=== PATIENT | female | born 1970 | race Caucasian/White ===

== ENCOUNTER → 2016-07-23 | Outpatient (CLI) | payer MEDICAID | LOC: CIMAGING 08:14 | PROVIDERS: ATTEND Internal Medicine | DX: R74.8 Abnormal levels of other serum enzymes (principal); D30.01 Benign neoplasm of right kidney | CPT/HCPCS: 76700-PO ==

== ENCOUNTER 2017-03-24 07:43 | Emergency (ER) | payer MEDICAID ==
[2017-03-24 07:53] VITALS: RESP 18; TEMP 98; O2SAT 97
--- NOTE | 2017-03-24 08:00 | EDPHY ---
H & P Stated Complaint: c/o UTI s/s x 2 days Time Seen by Provider: 03/24/17 07:56 HPI/ROS: CHIEF COMPLAINT: Dysuria HISTORY OF PRESENT ILLNESS: Patient is a 38-year-old female who comes to the emergency department complaining of dysuria for the last 2 days. No fevers. No flank pain. No nausea vomiting. No rash. She denies risk of . No discharge. REVIEW OF SYSTEMS: Constitutional: denies: chills, fever, recent illness, recent injury EENTM: denies: blurred vision, double vision, nose congestion Respiratory: denies: cough, shortness of breath Cardiac: denies: chest pain, irregular heart rate, lightheadedness, palpitations Gastrointestinal/Abdominal: denies: abdominal pain, diarrhea, nausea, vomiting, blood streaked stools Genitourinary: See HPI Musculoskeletal: denies: joint pain, muscle pain Skin: denies: lesions, rash, jaundice, bruising Neurological: denies: headache, numbness, paresthesia, tingling, dizziness, weakness Hematologic/Lymphatic: denies: blood clots, easy bleeding, easy bruising Immunologic/allergic: denies: HIV/AIDS, transplant EXAM: GENERAL: Well-appearing, well-nourished and in no acute distress. HEAD: Atraumatic, normocephalic. EYES: Pupils equal round and reactive to light, extraocular movements intact, sclera anicteric, conjunctiva are normal. ENT: TMs normal, nares patent, oropharynx clear without exudates. Moist mucous membranes. NECK: Normal range of motion, supple without lymphadenopathy or JVD. LUNGS: Breath sounds clear to auscultation bilaterally and equal. No wheezes rales or rhonchi. HEART: Regular rate and rhythm without murmurs, rubs or gallops. ABDOMEN: Soft, nontender, normoactive bowel sounds. No guarding, no rebound. No masses appreciated. BACK: No CVA tenderness, no spinal tenderness, step-offs or deformities EXTREMITIES: Normal range of motion, no pitting or edema. No clubbing or cyanosis. NEUROLOGICAL: Cranial nerves II through XII grossly intact. Normal speech, normal gait. 5/5 strength, normal movement in all extremities, normal sensation PSYCH: Normal mood, normal affect. SKIN: Warm, dry, normal turgor, no visible rashes or lesions. Source: Patient Exam Limitations: No limitations - Personal History LMP (Females 10-55): 22-28 Days Ago Current Tetanus Diphtheria and Acellular Pertussis (TDAP): Yes - Medical/Surgical History Hx Asthma: No Hx Chronic Respiratory Disease: No Hx Diabetes: No Hx Cardiac Disease: No Hx Renal Disease: No Hx Cirrhosis: No Hx Alcoholism: No Hx HIV/AIDS: No Hx Splenectomy or Spleen Trauma: No Other PMH: hypothyroid,chronic pain, Closed Head injury, , breast augmentation - Family History Significant Family History: No pertinent family hx - Social History Smoking Status: Never smoked Alcohol Use: Sober Drug Use: None Constitutional: Initial Vital Signs Temperature (C) 36.6 C 03/24/17 07:51 Heart Rate 95 03/24/17 07:51 Respiratory Rate 18 03/24/17 07:51 Blood Pressure 119/79 03/24/17 07:51 O2 Sat (%) 97 03/24/17 07:51 O2 Delivery Mode Room Air Allergies/Adverse Reactions: antibiotic Allergy (Uncoded 10/11/14 21:19) keflex Allergy (Uncoded 03/24/17 07:51) allergies that she cannot remember Adverse Reaction (Unknown, Uncoded 12/29/15 12:24) Home Medications: Medication Instructions Recorded Oxycodone HCl/Acetaminophen 1 ea PO Q4H PRN #15 tablet 02/14/11 [Oxycodone-Acetaminophen 5-325] Adderall 10 MG (*) 03/24/17 Nitrofurantoin Monohyd/M-Cryst 100 mg PO BID #20 cap 03/24/17 [Nitrofurantoin Alger-Macrocrystal] Ondansetron Odt [Zofran Odt 4 mg 4 mg PO Q4 PRN #20 tab 03/24/17 (RX)] Phenazopyridine HCl [Pyridium] 200 mg PO TID #6 tab 03/24/17 Medical Decision Making ED Course/Re-evaluation: 8:30 a.m. we discussed the lab results. I will start the patient on Macrobid. She is allergic to Keflex. She is also requesting a prescription for Zofran and and we discussed treatment with [id number] Pyridium. She is happy with this plan and declines further workup or testing at this time. We discussed indications for returning. Differential Diagnosis: Partial list of the Differential diagnosis considered include but were not limited to; urinary tract infection, yeast infection, pyelonephritis and although unlikely based on the history and physical exam, I also considered STD , , ovarian cyst, sepsis. I discussed these differential diagnoses and the plan with the patient as well as the usual and expected course. The patient understands that the diagnosis is provisional and that in medicine we are not always correct and that further workup is often warranted. Usual and customary warnings were given. All of the patient's questions were answered. The patient was instructed to return to the emergency department should the symptoms at all worsen or return, otherwise to followup with the physician as we discussed. - Data Points Laboratory Results: 03/24/17 03/24/17 08:00 08:00 Urine Color LT. YELLOW Urine Appearance HAZY Urine pH 5.5 (5.0-7.5) Ur Specific [place] >= 1.030 (1.002-1.030) Urine Protein 1+ H (NEGATIVE) Urine Ketones TRACE H (NEGATIVE) Urine Blood TRACE H (NEGATIVE) Urine Nitrate NEGATIVE (NEGATIVE) Urine Bilirubin NEGATIVE (NEGATIVE) Urine Urobilinogen 0.2 EU EU (0.2-1.0) Ur Leukocyte Esterase 1+ H (NEGATIVE) Urine RBC 3-5 /hpf H /hpf (0-3) Urine WBC 25-50 /hpf H /hpf (0-3) Ur Epithelial Cells 1+ /lpf /lpf (NONE-1+) Urine Bacteria 2+ /hpf H /hpf (NONE SEEN) Urine Mucus 2+ /lpf H /lpf (NONE-1+) Urine Glucose NEGATIVE (NEGATIVE) Urine Test NEGATIVE Medications Given: Discontinued Medications Nitrofurantoin Macrocrystals (Macrobid) 100 mg PO EDNOW ONE PRN Reason: Protocol Stop: 03/24/17 08:37 Last Admin: 03/24/17 08:44 Dose: 100 mg Phenazopyridine HCl (Pyridium) 200 mg PO EDNOW ONE Stop: 03/24/17 08:37 Last Admin: 03/24/17 08:45 Dose: 200 mg Departure - Departure Disposition: Home, Routine, Self-Care Clinical Impression: Urinary tract infection Qualifiers: Urinary tract infection type: acute cystitis Hematuria presence: without hematuria Qualified Code(s): N30.00 - Acute cystitis without hematuria Condition: Fair Instructions: Urinary Tract Infection in Women (ED) Referrals: Barrett Crabtree MD [Primary Care Provider] - As per Instructions Prescriptions: Nitrofurantoin Monohyd/M-Cryst [Nitrofurantoin Alger-Macrocrystal] 100 mg PO BID #20 cap Ondansetron Odt [Zofran Odt 4 mg (RX)] 4 mg PO Q4 PRN #20 tab PRN Reason: Nausea & Vomiting Phenazopyridine HCl [Pyridium] 200 mg PO TID #6 tab
[2017-03-24 08:11] LABS: LEUKOCYTE ESTERASE,URINE 1+ (NEGATIVE); NITRITE,URINE NEGATIVE (NEGATIVE); PH,URINE 5.5 (5.0-7.5)
[2017-03-24 08:12] LABS: COLOR LT. YELLOW
[2017-03-24 08:21] LABS: BACTERIA 2+ /hpf (NONE SEEN); MUCUS 2+ /lpf (NONE-1+); WBC,URINE 25-50 /hpf (0-3)
[2017-03-24] MEDS ORDERED: PHENAZOPYRIDINE HCL 200 MG TAB PO ONE (08:36)
[2017-03-24] MEDS ORDERED: NITROFURANTOIN MACROBID 100 MG CAP PO ONE (08:36)
[2017-03-24 08:51] VITALS: BP 132/62; PULSE 78
== END 2017-03-24 08:49 | disposition home or self-care (01) ==
LOC: CED 07:43
DX: N30.00 Acute cystitis without hematuria (principal); B96.89 Other specified bacterial agents as the cause of diseases classified elsewhere
CPT/HCPCS: 81003-PO; 81015-PO; 81025-PO

== ENCOUNTER → 2018-04-16 | Outpatient (CLI) | payer MEDICAID | LOC: CIMAGING 15:18 | PROVIDERS: ATTEND Internal Medicine | DX: D25.1 Intramural leiomyoma of uterus (principal); D25.2 Subserosal leiomyoma of uterus; N83.201 Unspecified ovarian cyst, right side; N88.8 Other specified noninflammatory disorders of cervix uteri | CPT/HCPCS: 76856-PO ==

== ENCOUNTER → 2018-06-18 | Outpatient (CLI) | payer MEDICAID | LOC: CIMAGING 12:50 | PROVIDERS: ATTEND Obstetrics & Gynecology | DX: Z12.31 Encounter for screening mammogram for malignant neoplasm of breast (principal); N64.59 Other signs and symptoms in breast | CPT/HCPCS: 76641-PO ==

== ENCOUNTER 2018-08-19 12:43 | Inpatient (IN) | payer MEDICAID, OTHER ==
--- NOTE | 2018-08-19 13:01 | EDPHY ---
H & P Time Seen by Provider: 08/19/18 13:00 HPI/ROS: CHIEF COMPLAINT: Back pain after plastic surgery HISTORY OF PRESENT ILLNESS: The patient recently had breast augmentation presents to the ED with complaints of right posterior back pain. The patient has been dealing with difficult to manage pain since her surgery. She reports to me she was hospitalized at [facility] postoperatively. She saw her plastic surgeon today who referred her to the emergency department. The patient was initially told that it was a possibility that she was experiencing a kidney stone however the patient reports the me that the pain is definitely in the right paraspinal muscles in the upper cervical spine. She denies any fever or vomiting. The patient did have her dressings taken down by the plastic surgeon today who reportedly stated surgical incisions looked fine. REVIEW OF SYSTEMS: A comprehensive 10 point review of systems is otherwise negative aside from elements mentioned in the history of present illness Source: Patient Exam Limitations: No limitations - Medical/Surgical History Hx Asthma: No Hx Chronic Respiratory Disease: No Hx Diabetes: No Hx Cardiac Disease: No Hx Renal Disease: No Hx Cirrhosis: No Hx Alcoholism: No Hx HIV/AIDS: No Hx Splenectomy or Spleen Trauma: No Other PMH: hypothyroid,chronic pain, Closed Head injury, , breast augmentation - Social History Smoking Status: Never smoked - Physical Exam Exam: General Appearance: Alert, appears somewhat sedated, no acute distress Eyes: Pupils equal and round no pallor or injection ENT, Mouth: Mucous membranes moist Respiratory: There are no retractions, lungs are clear to auscultation, multiple drains in place on chest wall, soft tissue binder also in place. Cardiovascular: Regular rate and rhythm Gastrointestinal: Abdomen is soft and nontender, no masses, bowel sounds normal Neurological: A&O, normal motor function, normal sensory exam, normal cranial nerves Skin: Warm and dry, no rashes Musculoskeletal: Tenderness to palpation in the right posterior mid parathoracic musculature Extremities: symmetrical, full range of motion Constitutional: Initial Vital Signs Temperature (C) 37 C 08/19/18 12:58 Heart Rate 81 08/19/18 12:58 Respiratory Rate 20 08/19/18 12:58 Blood Pressure 119/86 H 08/19/18 12:58 O2 Sat (%) 95 08/19/18 12:58 O2 Delivery Mode Nasal Cannula O2 (L/minute) 2 Allergies/Adverse Reactions: antibiotic Allergy (Uncoded 10/11/14 21:19) keflex Allergy (Uncoded 03/24/17 07:51) allergies that she cannot remember Adverse Reaction (Unknown, Uncoded 12/29/15 12:24) Home Medications: Medication Instructions Recorded Oxycodone HCl/Acetaminophen 1 ea PO Q4H PRN #15 tablet 02/14/11 [Oxycodone-Acetaminophen 5-325] Adderall 10 MG (*) 03/24/17 Nitrofurantoin Monohyd/M-Cryst 100 mg PO BID #20 cap 03/24/17 [Nitrofurantoin Emanuel-Macrocrystal] Ondansetron Odt [Zofran Odt 4 mg 4 mg PO Q4 PRN #20 tab 03/24/17 (RX)] Phenazopyridine HCl [Pyridium] 200 mg PO TID #6 tab 03/24/17 Medical Decision Making ED Course/Re-evaluation: Patient is referred to the emergency department by her plastic surgeon for evaluation of uncontrolled postoperative pain that is out of proportion to any physical exam findings. The patient had been hospitalized overnight at the [facility] Emergency Department postoperatively. She has had severe pain in her back. She was referred here for evaluation. The patient was requesting IV Dilaudid upon arrival. She has been on oral oxycodone as an outpatient. The patient was taken for CT pulmonary angiogram if she was noted to be hypoxic and have back pain. That study demonstrated no evidence of a PE. CT scan of the abdomen pelvis does demonstrate trace pneumoperitoneum which Dr. Oscar tells me is unexpected finding following her plastic surgery. Patient received multiple doses of IV Dilaudid in the emergency department. The etiology of her pain is uncertain. The patient does not have a known history of narcotic dependence. I discussed the case with Dr. Oscar who was requested the patient be admitted to the hospitalist service. The patient is still in a hospital tomorrow he will see the patient while in house. Consultation was made with Dr. De Santiago from the hospitalist service who will admit the patient. Differential Diagnosis: Differential diagnosis considered includes pulmonary embolism, pneumonia, pneumothorax, kidney stone, peritonitis, narcotic dependence - Data Points Laboratory Results: Laboratory Results 08/19/18 13:00 08/19/18 13:00 08/19/18 08/19/18 13:00 13:00 WBC 15.48 10^3/uL H 10^3/uL (3.80-9.50) RBC 4.15 10^6/uL L 10^6/uL (4.18-5.33) Hgb 13.3 g/dL g/dL (12.6-16.3) Hct 38.5 % % (38.0-47.0) MCV 92.8 fL fL (81.5-99.8) MCH 32.0 pg pg (27.9-34.1) MCHC 34.5 g/dL g/dL (32.4-36.7) RDW 12.3 % % (11.5-15.2) Plt Count 260 10^3/uL 10^3/uL (150-400) MPV 9.6 fL fL (8.7-11.7) Neut % (Auto) 70.7 % % (39.3-74.2) Lymph % (Auto) 19.3 % % (15.0-45.0) Emanuel % (Auto) 8.9 % % (4.5-13.0) Eos % (Auto) 0.1 % L % (0.6-7.6) Baso % (Auto) 0.5 % % (0.3-1.7) Nucleat RBC Rel Count 0.0 % % (0.0-0.2) Absolute Neuts (auto) 10.95 10^3/uL H 10^3/uL (1.70-6.50) Absolute Lymphs (auto) 2.99 10^3/uL 10^3/uL (1.00-3.00) Absolute Monos (auto) 1.37 10^3/uL H 10^3/uL (0.30-0.80) Absolute Eos (auto) 0.02 10^3/uL L 10^3/uL (0.03-0.40) Absolute Basos (auto) 0.07 10^3/uL 10^3/uL (0.02-0.10) Absolute Nucleated RBC 0.00 10^3/uL 10^3/uL (0-0.01) Immature Gran % 0.5 % % (0.0-1.1) Immature Gran # 0.08 10^3/uL 10^3/uL (0.00-0.10) Sodium 135 mEq/L mEq/L (135-145) Potassium 3.3 mEq/L L mEq/L (3.5-5.2) Chloride 100 mEq/L mEq/L (97-110) Carbon Dioxide 23 mEq/l mEq/l (22-31) Anion Gap 12 mEq/L mEq/L (6-14) BUN 9 mg/dL mg/dL (7-23) Creatinine 0.7 mg/dL mg/dL (0.6-1.0) Estimated GFR > 60 Glucose 107 mg/dL H mg/dL (70-100) Calcium 9.5 mg/dL mg/dL (8.5-10.4) Medications Given: Discontinued Medications Hydromorphone HCl (Dilaudid) 1 mg IVP EDNOW ONE Stop: 08/19/18 13:09 Last Admin: 08/19/18 13:13 Dose: 1 mg Hydromorphone HCl (Dilaudid) 1 mg IVP EDNOW ONE Stop: 08/19/18 14:43 Last Admin: 08/19/18 14:41 Dose: 1 mg Sodium Chloride (Ns) 1,000 mls @ 0 mls/hr IV EDNOW ONE; Wide Open PRN Reason: Protocol Stop: 08/19/18 13:09 Last Admin: 08/19/18 13:15 Dose: 1,000 mls Departure - Departure Disposition: [facility] Inpatient Acute Clinical Impression: Postoperative pain Condition: Good Referrals: FRANKIE FRENCH [Primary Care Provider] - As per Instructions
[2018-08-19] MEDS ORDERED: NS 1,000 ML IV ONE (13:08)
[2018-08-19] MEDS ORDERED: HYDROmorphONE/DILAUDID 2 MG/ML INJ IVP ONE ×2 (13:08→14:42)
[2018-08-19 13:24] LABS: PLATELET COUNT 260 10^3/uL (150-400)
[2018-08-19] MEDS ORDERED: IOPAMIDOL (ISOVUE 370) 100 ML BTL IV ONE (13:59)
[2018-08-19] MEDS ORDERED: HYDROmorphONE/DILAUDID 1 MG/ML INJ ONE (14:41)
[2018-08-19] MEDS ORDERED: ACETAMINOPHEN 325 MG TAB PO PRN (15:57)
[2018-08-19] MEDS ORDERED: ONDANSETRON DISINTEGRATING 4 MG TAB PO PRN (15:57)
[2018-08-19] MEDS ORDERED: PROTOCOL POTASSIUM 1 DOSE MISC PRN (16:01)
[2018-08-19] MEDS ORDERED: LACTULOSE 20 GM/30 ML UDCUP PO PRN (16:02)
[2018-08-19] MEDS ORDERED: MAGNESIUM HYDROXIDE 30 ML UDCUP PO PRN (16:02)
[2018-08-19] MEDS ORDERED: BISACODYL 10 MG SUPP PR PRN (16:02)
[2018-08-19] MEDS ORDERED: POTASSIUM CL 20 MEQ PKT PO ONE (16:03)
--- NOTE | 2018-08-19 16:12 | PDGENHP ---
History and Physical - Chief Complaint Intractable post-operative pain - History of Present Illness 48 y/o female presenting to the emergency room s/p multiple cosmetic procedures that took place on Friday at [facility] by Dr. Oscar (face lift, neck lift, breast reduction and lift, and tummy tuck) w/intractable surgical pain. She was admitted overnight on Friday at [facility]'s ED d/t pain and was discharged yesterday able to tolerate PO narcotics. She presented to Dr. Oscar's office today c/o of continued pain mostly to her right posterior back which per Dr. Oscar is unusual for her type of procedures that were performed and was sent here to the ED for further evaluation. Before coming here, he removed bandages to evaluate surgical incision and was deemed C/D/I. Chest CTA and abdominal CT reveal no PE and trace pneumoperitoneum, finding no etiology that is causing the pain. She reports she has pain at every incisional site, nauseous, has vomited, and would like to have a BM since her last BM was Friday. Denies CP, palpitations, SOB, dysuria. She is being admitted for treatment and monitoring. History Information - Allergies/Home Medication List Allergies/Adverse Reactions: cephalexin [From Keflex] Allergy (Verified 08/19/18 16:17) Home Medications: ALPRAZolam [Xanax 0.25 MG (*)] 0.25 mg PO DAILY PRN 08/19/18 [Last Taken Unknown ] Clindamycin HCl [Clindamycin] 300 mg PO AD 08/19/18 [Last Taken 08/19/18] Ibuprofen [Motrin (*)] 600 mg PO Q6-8PRN PRN 08/19/18 [Last Taken Unknown] oxyCODONE IR [Oxycodone Ir (*)] 2.5 - 5 mg PO Q4-6PRN PRN 08/19/18 [Last Taken 08/19/18] traZODone [traZODONE 50MG (*)] 25 mg PO HS 08/19/18 [Last Taken 08/18/18] I have personally reviewed and updated: family history, medical history, social history, surgical history Past Medical History: Hypothyroidism, Chronic pain, fibromyalgia?, PTSD, depression, migraines - Surgical History Additional surgical history: , breast reduction w/lift, face lift, neck lift, tummy tuck - Family History Positive for: non-pertinent - Social History Smoking Status: Never smoked Alcohol Use: Rarely Drug Use: None Additional social history: Single. Lives in [place]. Son at age 30 y/o last year in [place] d/t motorcycle accident Review of Systems Review of Systems: ROS: 10pt was reviewed & negative except for what was stated in HPI & below Physical Exam Physical Exam: Lab data and imaging were reviewed. Case discussed w/admitting physician, Dr. Jesenia De Santiago WBC: 15.48 H/H: 13.3/38.5 Plt count: 260 Na: 135 K: 3.3 Cl: 100 Co2: 23 BUN/Cr: 9/0.[address]/Chest CTA: see HPI Temp Pulse Resp BP Pulse Ox 36.4 C 107 H 18 146/103 H 96 08/19/18 14:35 08/19/18 14:35 08/19/18 14:35 08/19/18 14:35 08/19/18 14:35 Constitutional: no apparent distress, uncomfortable Eyes: PERRL, anicteric sclera, EOMI Ears, Nose, Mouth, Throat: moist mucous membranes, hearing normal, ears appear normal, no oral mucosal ulcers Cardiovascular: regular rate and rhythym, no murmur, rub, or gallop, No edema Peripheral Pulses: 2+: dorsalis-pedis (R), dorsalis-pedis (L) Respiratory: no respiratory distress, no rales or rhonchi, clear to auscultation Gastrointestinal: other (Hypoactive BS, tender d/t surgical incision) Genitourinary: no bladder fullness, no bladder tenderness Skin: warm, normal color, no rashes or abrasions, no fluctuance, no induration, other (Surgical incisions noted appear to be C/D/I, noted 2 drains to chest wall ), No mottled Musculoskeletal: full muscle strength, no muscle tenderness, normal joint ROM, no joint effusions Neurologic: AAOx3, sensation intact bilaterally, CN II-XII Intact Psychiatric: interacting appropriately, not anxious, not encephalopathic, thought process linear Lymph, Heme, Immunologic: no cervical LAD, no supraclavicular LAD Lab Data & Imaging Review 08/19/18 13:00 08/19/18 13:00 WBC 15.48 10^3/uL (3.80-9.50) H 08/19/18 13:00 RBC 4.15 10^6/uL (4.18-5.33) L 08/19/18 13:00 Hgb 13.3 g/dL (12.6-16.3) 08/19/18 13:00 Hct 38.5 % (38.0-47.0) 08/19/18 13:00 MCV 92.8 fL (81.5-99.8) 08/19/18 13:00 MCH 32.0 pg (27.9-34.1) 08/19/18 13:00 MCHC 34.5 g/dL (32.4-36.7) 08/19/18 13:00 RDW 12.3 % (11.5-15.2) 08/19/18 13:00 Plt Count 260 10^3/uL (150-400) 08/19/18 13:00 MPV 9.6 fL (8.7-11.7) 08/19/18 13:00 Neut % (Auto) 70.7 % (39.3-74.2) 08/19/18 13:00 Lymph % (Auto) 19.3 % (15.0-45.0) 08/19/18 13:00 Traill % (Auto) 8.9 % (4.5-13.0) 08/19/18 13:00 Eos % (Auto) 0.1 % (0.6-7.6) L 08/19/18 13:00 Baso % (Auto) 0.5 % (0.3-1.7) 08/19/18 13:00 Nucleat RBC Rel Count 0.0 % (0.0-0.2) 08/19/18 13:00 Absolute Neuts (auto) 10.95 10^3/uL (1.70-6.50) H 08/19/18 13:00 Absolute Lymphs (auto) 2.99 10^3/uL (1.00-3.00) 08/19/18 13:00 Absolute Monos (auto) 1.37 10^3/uL (0.30-0.80) H 08/19/18 13:00 Absolute Eos (auto) 0.02 10^3/uL (0.03-0.40) L 08/19/18 13:00 Absolute Basos (auto) 0.07 10^3/uL (0.02-0.10) 08/19/18 13:00 Absolute Nucleated RBC 0.00 10^3/uL (0-0.01) 08/19/18 13:00 Immature Gran % 0.5 % (0.0-1.1) 08/19/18 13:00 Immature Gran # 0.08 10^3/uL (0.00-0.10) 08/19/18 13:00 Sodium 135 mEq/L (135-145) 08/19/18 13:00 Potassium 3.3 mEq/L (3.5-5.2) L 08/19/18 13:00 Chloride 100 mEq/L (97-110) 08/19/18 13:00 Carbon Dioxide 23 mEq/l (22-31) 08/19/18 13:00 Anion Gap 12 mEq/L (6-14) 08/19/18 13:00 BUN 9 mg/dL (7-23) 08/19/18 13:00 Creatinine 0.7 mg/dL (0.6-1.0) 08/19/18 13:00 Estimated GFR > 60 08/19/18 13:00 Glucose 107 mg/dL (70-100) H 08/19/18 13:00 Calcium 9.5 mg/dL (8.5-10.4) 08/19/18 13:00 Magnesium 1.7 mg/dL (1.6-2.3) 08/19/18 13:00 Total Bilirubin 0.5 mg/dL (0.1-1.4) 08/19/18 13:00 Conjugated Bilirubin 0.2 mg/dL (0.0-0.5) 08/19/18 13:00 Unconjugated Bilirubin 0.3 mg/dL (0.0-1.1) 08/19/18 13:00 AST 30 IU/L (14-46) 08/19/18 13:00 ALT 32 IU/L (9-52) 08/19/18 13:00 Alkaline Phosphatase 66 IU/L (38-126) 08/19/18 13:00 Total Protein 6.3 g/dL (6.3-8.2) 08/19/18 13:00 Albumin 3.7 g/dL (3.5-5.0) 08/19/18 13:00 Assessment & Plan Plan: 48 y/o female s/p POD #3 after undergoing face and neck lift, tummy tuck, and breast reduction w/lift w/Dr. Oscar at [facility] presents w/intractable post-operative pain. She was admitted to [facility] ER after surgery because of pain and d/c'ed yesterday. She was given Percocet to assist w/pain management. While she was sleeping in the ED, her oxygen saturation dipped into the 80s - chest CTA revealed no PE or pulmonary processes. Abdominal CT reveal trace pneumoperitoneum w/no perforation or abscesses. Her vitals signs are the followin/103 BP, 107 HR, 18 Resp, 36.4c, 96% 2L NC. #Post-operative pain management -She received 2 mg IVP Dilaudid in the ED; will not supply any further IVP narcotics -She may cont her Oxy IR PO and receive Toradol IVP PRN -PT/OT to evaluate and treat -Bowel regimen -Anti-emetics PRN -Cont clindamycin #Leukocytosis: 15.48, she is afebrile and considering her recent surgery, I suspect this is stress reactive and not infectious. Cont to monitor. If febrile, check white count in AM. #Hypokalemia: 3.3, Magnesium 1.7. Initiated K protocol and will receive 40 meq K PO tonight #Depression: She reports being "in a good place right now." Cont home xanax and trazadone. Diet: Regular Code: Full VTE ppx: SCDs Dispo: Admit to obs
[2018-08-19] MEDS: ALPRAZolam 0.25 MG TAB PO PRN (16:23)
[2018-08-19] MEDS: KETOROLAC 30 MG/1 ML SDV IVP PRN ×2 (16:24→22:53)
[2018-08-19] MEDS: ONDANSETRON 4 MG/2 ML VIAL IVP PRN ×2 (16:24→20:36)
[2018-08-19] MEDS ORDERED: POTASSIUM CL 10 MEQ TAB PO ONE (16:39)
[2018-08-19] MEDS: CLINDAMYCIN 150 MG CAP PO SCH ×2 (17:16→20:40)
--- NOTE | 2018-08-19 18:18 | GHP ---
[f rep st] HISTORY AND PHYSICAL DATE OF ADMISSION: 08/19/2018 CHIEF COMPLAINT: Intractable full body postoperative pain. HISTORY OF PRESENT ILLNESS: A 48 year-old female presenting in the ER, status post multiple cosmetic procedures on 08/17/[address] Oscar, including face/ neck lift, breast reduction and lift, tummy tuck, with intractable pain. Seen [place] that evening with pain and discharged home with oxycodone. Has been taking 5 to 10 mg every 4 hours. Her incisions were evaluated by Dr. Oscar today. Most concerned about her right flank, which is unusual for any of the procedures he performs. Chest CTA and abdominal CT are negative for pulmonary embolism. Show trace pneumoperitoneum, but no source causing the pain. She says the pain is at every incisional site. She is nauseated and has not had a BM since Friday. She cannot further describe the pain, whether it is sharp or dull. She does tell me it gets as bad as 5 at home and 3 with Dilaudid here in the ER. I examined and evaluated the patient with Iona Lara NP. I reviewed her note, agree it except as stated in mine. PHYSICAL EXAMINATION: VITAL SIGNS: Temperature 36.4, blood pressure 111/73, heart rate was 107 initially and 69 now, 100% on 4 L, 95% on room air. GENERAL : Appears younger than stated age. HEENT: Incision behind bilateral ears, scalp stapled, clean, dry, intact. No surrounding erythema. Has a surgical binder across her chest. MICHAEL drains with sanguinous drainage. Abdominal incision is stable, clean, dry, intact. No evidence of infection. ASSESSMENT/PLAN: Pain: Has a history of fibromyalgia, which may be contributing. There are no objective findings on imaging to explain her pain. Provide home oxycodone along with Toradol with a PPI. I expressed to her my concern of starting narcotics for unidentified source. Provided bowel regimen, incentive spirometry. Dr. Oscar to evaluate tomorrow. DISPOSITION: Observation admission given intractable pain warranting IV Toradol. /[id number]/MODL MTDD
[2018-08-19] MEDS: PANTOPRAZOLE SODIUM 40 MG VIAL IVP SCH (18:32)
[2018-08-19] MEDS: SENNOSIDES 1 TAB PO PRN ×2 (19:08→20:45)
[2018-08-19] MEDS: oxyCODONE IR 5 MG TAB PO PRN ×2 (19:30→23:38)
[2018-08-19] MEDS: traZODone 50 MG TAB PO SCH (20:40)
[2018-08-19] MEDS: SENNOSIDES/DOCUSATE SODIUM TAB PO SCH (20:55)
[2018-08-20] MEDS: oxyCODONE IR 5 MG TAB PO PRN ×2 (04:40→08:56)
[2018-08-20] MEDS: KETOROLAC 30 MG/1 ML SDV IVP PRN ×2 (05:00→10:38)
--- NOTE | 2018-08-20 08:37 | SOAPPROG ---
SOAP Progress Note Assessment/Plan: Assessment: Improved pain control s/p cosmetic surgery Normal post surgical healing Plan: Home today on oral pain meds Follow up BPS tomorrow for dressing changes 08/20/18 08:35 Subjective: Feeling comfortable this am Objective: Vital Signs Temp Pulse Resp BP Pulse Ox 36.3 C 78 16 107/62 99 08/20/18 04:00 08/20/18 04:00 08/20/18 04:00 08/20/18 04:00 08/20/18 04:00 Laboratory Results 08/20/18 04:36 08/19/18 08/20/18 08/21/18 05:59 05:59 05:59 Intake Total 1250 Output Total 110 Balance 1140 dressings clean and intact ICD10 Worksheet Patient Problems: Problems Problem Status Onset Postoperative pain Acute
[2018-08-20] MEDS: PANTOPRAZOLE SODIUM 40 MG VIAL IVP SCH (08:57)
[2018-08-20] MEDS: SENNOSIDES/DOCUSATE SODIUM TAB PO SCH ×2 (08:57→22:07)
[2018-08-20] MEDS ORDERED: HYDROmorphONE/DILAUDID 2 MG TAB PO PRN (11:20)
[2018-08-20] MEDS: POLYETHYLENE GLYCOL 3350 17 GM PKT PO PRN (12:15)
[2018-08-20] MEDS: KETOROLAC 15 MG/1 ML SDV IVP PRN ×2 (14:43→21:07)
--- NOTE | 2018-08-20 15:42 | ASMTCMCOM ---
CM Note CM Note Notes: Patient admitted with post-operative pain after having multiple cosmetic procedures w Dr Oscar at [facility] Thursday 08/17. She is normally independent, works as an [employer] consultant. Lives alone. PT/OT have cleared her for home. Anticipate an independent d/c when pain is controlled. Date Signed: 08/20/2018 03:41 PM Electronically Signed By:Alyce Bradley RN
[2018-08-20] MEDS: HYDROmorphONE/DILAUDID 2 MG TAB PO PRN ×2 (16:13→20:13)
--- NOTE | 2018-08-20 17:03 | HOSPPROG ---
Hospitalist Progress Note Assessment/Plan: * s/p multiple plastic surgeries -pain control sub-optimal - multiple readmissions -continue IV toradol -avoid further IV dilaudid - now on PO dilaudid * Leukocytosis -recheck am - doubt infection * Constipation -bowel protocol Subjective: Pain a little better, still rough, doesn't want to go home because she has had to come back so many times Objective: Vital Signs Temp Pulse Resp BP Pulse Ox 36.8 C 90 16 116/84 H 98 08/20/18 15:57 08/20/18 15:57 08/20/18 15:57 08/20/18 15:57 08/20/18 15:57 Laboratory Results 08/20/18 04:36 08/19/18 08/20/18 08/21/18 05:59 05:59 05:59 Intake Total 1250 Output Total 110 Balance 1140 - Physical Exam Constitutional: no apparent distress, appears nourished, not in pain Cardiovascular: regular rate and rhythym, no murmur, rub, or gallop Respiratory: no respiratory distress, no rales or rhonchi, clear to auscultation Gastrointestinal: No tenderness Skin: no rashes or abrasions, no fluctuance, no induration Neurologic: AAOx3, sensation intact bilaterally Psychiatric: interacting appropriately, not anxious, not encephalopathic, thought process linear ICD10 Worksheet Patient Problems: Problems Problem Status Onset Postoperative pain Acute
[2018-08-20] MEDS: ONDANSETRON 4 MG/2 ML VIAL IVP PRN (17:48)
--- NOTE | 2018-08-20 19:37 | PDMN ---
Medical Necessity Medical necessity: Pt meets inpt criteria per MD order and Pain Management GRG, 48 y/o s/p mult cosmetic surgeries (face lift, neck lift, breast reduction and lift, tummy tuck) on 08/17/18, presented to ED w/intractable surgical pain, admitted initially as OBS for post-op pain management, upgraded to inpt today for sub-optimal pain control despite IV Dilaudid, IV Toradol, requires inpt pain management, est LOS>2MN for management of above.
[2018-08-20] MEDS: ALPRAZolam 0.25 MG TAB PO PRN (21:07)
[2018-08-20] MEDS: traZODone 50 MG TAB PO SCH (22:07)
[2018-08-21] MEDS: HYDROmorphONE/DILAUDID 2 MG TAB PO PRN ×6 (00:27→20:47)
[2018-08-21] MEDS: KETOROLAC 15 MG/1 ML SDV IVP PRN ×4 (03:13→21:57)
[2018-08-21] MEDS: ONDANSETRON 4 MG/2 ML VIAL IVP PRN ×4 (03:21→21:57)
[2018-08-21] MEDS: SENNOSIDES/DOCUSATE SODIUM TAB PO SCH ×2 (08:36→20:46)
[2018-08-21] MEDS ORDERED: MAGNESIUM CITRATE 300 ML BOTTLE PO ONE (11:30)
--- NOTE | 2018-08-21 11:57 | HOSPPROG ---
Hospitalist Progress Note Assessment/Plan: 48 yo F w multiple recent plastic surgeries, uncontrolled pain s/p multiple plastic surgeries -pain control sub-optimal - multiple readmissions -continue IV toradol -dc iv narcotics- now on PO dilaudid Leukocytosis -recheck am - doubt infection resolved Constipation -bowel protocol ADD MAG CITRATE extraluminal air: images reviewed/interp by me benign exam eating unclear what to make of this; exam reassuring dispo: inpt Subjective: still w pain, albeit better. no BM yet Objective: Vital Signs Temp Pulse Resp BP Pulse Ox 36.7 C 88 16 136/89 H 96 08/21/18 08:00 08/21/18 08:00 08/21/18 08:00 08/21/18 08:00 08/21/18 08:00 Laboratory Results 08/21/18 04:26 08/21/18 04:26 08/20/18 08/21/18 08/22/18 05:59 05:59 05:59 Intake Total 450 Output Total 90 Balance -90 450 - Physical Exam Constitutional: no apparent distress, appears nourished Eyes: PERRL, anicteric sclera Ears, Nose, Mouth, Throat: moist mucous membranes, hearing normal Cardiovascular: regular rate and rhythym, no murmur, rub, or gallop Respiratory: no respiratory distress, no rales or rhonchi Gastrointestinal: normoactive bowel sounds, soft, non-tender abdomen Genitourinary: no bladder fullness, No jack in urethra Skin: warm, normal color Musculoskeletal: full muscle strength Neurologic: AAOx3 ICD10 Worksheet Patient Problems: Problems Problem Status Onset Postoperative pain Acute
--- NOTE | 2018-08-21 16:05 | ASMTCMCOM ---
CM Note CM Note Notes: Patient discussed in clinical rounds, patient to possibly discharge home today. There have been no CM needs identified, CM to follow. D/C plan: independent. Date Signed: 08/21/2018 04:04 PM Electronically Signed By:Eileen Cannon
[2018-08-21] MEDS ORDERED: FAMOTIDINE 20 MG TAB PO PRN (20:26)
[2018-08-21] MEDS: CALCIUM CARBONATE 500 MG CHEWABLE TAB PO PRN (20:46)
[2018-08-21] MEDS: ALPRAZolam 0.25 MG TAB PO PRN (21:51)
[2018-08-21] MEDS: traZODone 50 MG TAB PO SCH (21:51)
[2018-08-22] MEDS: HYDROmorphONE/DILAUDID 2 MG TAB PO PRN ×7 (01:03→22:01)
[2018-08-22] MEDS: ONDANSETRON 4 MG/2 ML VIAL IVP PRN ×4 (05:04→22:17)
[2018-08-22] MEDS: KETOROLAC 15 MG/1 ML SDV IVP PRN ×3 (05:04→17:07)
[2018-08-22] MEDS: POLYETHYLENE GLYCOL 3350 17 GM PKT PO PRN (10:11)
[2018-08-22] MEDS: SENNOSIDES/DOCUSATE SODIUM TAB PO SCH ×2 (10:13→21:57)
[2018-08-22] MEDS ORDERED: MAGNESIUM CITRATE 300 ML BOTTLE PO ONE (12:00)
[2018-08-22] MEDS: ALPRAZolam 0.25 MG TAB PO PRN (12:52)
[2018-08-22] MEDS: CALCIUM CARBONATE 500 MG CHEWABLE TAB PO PRN (12:53)
--- NOTE | 2018-08-22 14:52 | HOSPPROG ---
Hospitalist Progress Note Assessment/Plan: 48 yo F w multiple recent plastic surgeries, uncontrolled pain s/p multiple plastic surgeries -pain control sub-optimal - multiple readmissions -continue IV toradol -dc iv narcotics- now on PO dilaudid Leukocytosis -recheck am - doubt infection resolved Constipation -bowel protocol ADD MAG CITRATE extraluminal air: images reviewed/interp by me benign exam eating unclear what to make of this; exam reassuring dispo: inpt Subjective: has not moved bowels. pain worse. afebrile Objective: Vital Signs Temp Pulse Resp BP Pulse Ox 36.5 C 83 18 129/81 H 96 08/22/18 09:18 08/22/18 12:42 08/22/18 12:42 08/22/18 12:42 08/22/18 12:42 Laboratory Results 08/21/18 04:26 08/21/18 04:26 08/21/18 08/22/18 08/23/18 05:59 05:59 05:59 Intake Total 950 Output Total 90 60 Balance -90 950 -60 ICD10 Worksheet Patient Problems: Problems Problem Status Onset Postoperative pain Acute
[2018-08-22] MEDS ORDERED: PROMETHAZINE HCL 25 MG/ML INJ IVP ONE (17:00)
[2018-08-22] MEDS: traZODone 50 MG TAB PO SCH (21:56)
[2018-08-23] MEDS: HYDROmorphONE/DILAUDID 2 MG TAB PO PRN ×9 (04:14→23:31)
[2018-08-23] MEDS: ONDANSETRON 4 MG/2 ML VIAL IVP PRN ×5 (04:15→23:31)
[2018-08-23] MEDS: ALPRAZolam 0.25 MG TAB PO PRN (04:16)
[2018-08-23] MEDS: KETOROLAC 15 MG/1 ML SDV IVP PRN (06:03)
[2018-08-23] MEDS: SENNOSIDES/DOCUSATE SODIUM TAB PO SCH ×2 (09:42→21:24)
[2018-08-23] MEDS ORDERED: BISACODYL 10 MG SUPP PR ONE (10:18)
--- NOTE | 2018-08-23 14:38 | ASMTCMCOM ---
CM Note CM Note Notes: Patient discussed during clinical rounds. Patient will likely discharge tomorrow independent to home, she is scheduled for an outpatient appointment tomorrow morning. CM to follow. D/C Plan: independent. Date Signed: 08/23/2018 02:37 PM Electronically Signed By:Eileen Cannon
[2018-08-23] MEDS ORDERED: MAGNESIUM CITRATE 300 ML BOTTLE PO ONE (15:35)
--- NOTE | 2018-08-23 15:37 | HOSPPROG ---
Hospitalist Progress Note Assessment/Plan: 48 yo F w multiple recent plastic surgeries, uncontrolled pain s/p multiple plastic surgeries -pain control sub-optimal - multiple readmissions -dc IV toradol -dc iv narcotics- now on PO dilaudid Leukocytosis -recheck am - doubt infection resolved Constipation -bowel protocol ADD MAG CITRATE, prn fleets extraluminal air: images reviewed/interp by me benign exam eating unclear what to make of this; exam reassuring dispo: inpt trial of dc today, not clear it will work Subjective: still in pain. hasnt really moved bowels Objective: Vital Signs Temp Pulse Resp BP Pulse Ox 36.8 C 90 18 103/77 91 L 08/23/18 11:46 08/23/18 11:46 08/23/18 11:46 08/23/18 11:46 08/23/18 11:46 Laboratory Results 08/21/18 04:26 08/21/18 04:26 08/22/18 08/23/18 08/24/18 05:59 05:59 05:59 Intake Total 950 1700 Output Total 100 Balance 950 1600 - Physical Exam Constitutional: no apparent distress, appears nourished Eyes: PERRL, anicteric sclera Ears, Nose, Mouth, Throat: moist mucous membranes, hearing normal Cardiovascular: regular rate and rhythym, no murmur, rub, or gallop Respiratory: no respiratory distress, no rales or rhonchi Gastrointestinal: normoactive bowel sounds, soft, non-tender abdomen Genitourinary: No jack in urethra Skin: warm, normal color Musculoskeletal: full muscle strength ICD10 Worksheet Patient Problems: Problems Problem Status Onset Postoperative pain Acute
[2018-08-23] MEDS ORDERED: ALPRAZolam 0.25 MG TAB PO ONE (21:15)
[2018-08-23] MEDS: traZODone 50 MG TAB PO SCH (21:24)
[2018-08-23] MEDS ORDERED: SUMAtriptan 25 MG TAB PO ONE (23:36)
[2018-08-24] MEDS: ONDANSETRON 4 MG/2 ML VIAL IVP PRN ×4 (03:38→15:25)
[2018-08-24] MEDS: HYDROmorphONE/DILAUDID 2 MG TAB PO PRN ×4 (03:38→15:25)
[2018-08-24] MEDS: SENNOSIDES/DOCUSATE SODIUM TAB PO SCH (07:58)
[2018-08-24 08:53] VITALS: BP 109/66
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
--- NOTE | 2018-08-24 09:07 | ASMTDCNOTE ---
Case Management Discharge Discharge Order Complete? Answers: Yes Patient to Obtain Answers: Independently Medications Transportation Arranged Answers: Family/Friends Discharge Comments Notes: Patient medically cleared for independdent discharge to home. No needs identified, CM available should needs arise. Date Signed: 08/24/2018 09:06 AM Electronically Signed By:Melanie Raymond RN
--- NOTE | 2018-08-24 14:59 | HOSPPROG ---
Hospitalist Progress Note Assessment/Plan: 48 yo F w multiple recent plastic surgeries, uncontrolled pain s/p multiple plastic surgeries -pain control sub-optimal - multiple readmissions -dc IV toradol -dc iv narcotics- now on PO dilaudid Leukocytosis -recheck am - doubt infection resolved Constipation -bowel protocol ADD MAG CITRATE, prn fleets extraluminal air: images reviewed/interp by me benign exam eating unclear what to make of this; exam reassuring dispo: inpt dc today Subjective: moved bowels Objective: Vital Signs Temp Pulse Resp BP Pulse Ox 36.9 C 89 14 109/66 89 L 08/24/18 08:00 08/24/18 08:00 08/24/18 08:00 08/24/18 08:00 08/24/18 08:00 Laboratory Results 08/21/18 04:26 08/21/18 04:26 08/23/18 08/24/18 08/25/18 05:59 05:59 05:59 Intake Total 1700 1000 Output Total 100 20 Balance 1600 980 - Physical Exam Constitutional: no apparent distress, appears nourished Eyes: PERRL Ears, Nose, Mouth, Throat: moist mucous membranes Cardiovascular: regular rate and rhythym Respiratory: no respiratory distress Gastrointestinal: normoactive bowel sounds Genitourinary: No jack in urethra Skin: warm Musculoskeletal: full muscle strength ICD10 Worksheet Patient Problems: Problems Problem Status Onset Postoperative pain Acute
--- NOTE | 2018-08-24 15:18 | GDS ---
[f rep st] DISCHARGE SUMMARY DISCHARGE DIAGNOSES: Uncontrolled pain following cosmetic surgery procedures. The patient had anuj tic surgery procedures on August [address] Oscar. They were done at [facility]. She had multiple E R visits with uncontrolled pain. Here, she had abdominal CT that showed a tiny amount of air around her liver that was of uncertain clinical significance and a CTA negative for pulmonary infiltrate. T he patient suffered from constipation which was relieved. She had pain that was controlled with Haven dol and oral Dilaudid. Finally, today on the her pain is well controlled. She moved her bowels. She is discharged to follow up with Dr. Oscar in clinic. /[id number]/MODL
== END 2018-08-24 16:00 | disposition home or self-care (01) | DRG 948 ==
LOC: INTOOBSV 15:04 → F1N 16:09 → OBSVTOIN 08-20 16:59
PROVIDERS: ADMIT Internal Medicine; ATTEND Internal Medicine
DX: G89.18 Other acute postprocedural pain (principal); M54.2 Cervicalgia; K59.00 Constipation, unspecified; E87.6 Hypokalemia; M79.7 Fibromyalgia; E03.9 Hypothyroidism, unspecified; F32.9 Major depressive disorder, single episode, unspecified
CPT/HCPCS: 96374; 97116-GP; 97161-GP; 97166-GO; 97530-GO; 97530-GP; 97535-GO; G0378; J1170; J1885; J2405; J2550; Q9967